=== PATIENT | male | born 1950 | race Caucasian/White ===

== ENCOUNTER → 2016-05-23 | Outpatient (CLI) | payer OTHER ==
[~2016-05-23] MED LIST: AMARYL2 MG PO; ASPIR 8181 M1 PO; BENICAR20 MG PO; CELEXA10 MG PO; FLOMAX0.4 MG PO; FOLTX TABLET1 EAC1 PO; IBUPROFEN 800800 MG PO; LIPITOR 20 MG T20 M1 PO; METFORMIN HCL500 MG PO; OMEGA-31000 M1 PO; OXYCODONE HCL 55 MG PO; PHENERGAN 25 MG25 M1 PO; SYNTHROID75 MCG PO; UNICOMPLEX M TA1 TA1 PO; VITAMIN D3400 UNIT PO
--- NOTE | ~2016-05-23 | 24HR ---
[place] [address] [address] [place] [address] 24 HR ELECTROCARDIOGRAM REPORT Name: BARTOLO NAVARRETE [facility]: [id number] Admission: 05/23/16 Attend Phys: Pipe Gómez Discharge: Date of : 50 Date of Service: 05/23/16 1441 Report #: [id number] THIS REPORT FOR: //name// [facility] Test Date: 2016-05-23 Test Time: 14:41:00 Pat Name: BARTOLO NAVARRETE Department: Room: Gender: Adobe Cq Developer: : 1950 Requested By: Pipe Gómez Order Number: [id number] Eduarda MD: Anthony Domínguez Interpretive Statements 1. This study duration was 24 hours and the technical quality was acceptable. 2. The predominant rhythm was sinus with an average heart rate of 113bpm, range 86-150. Longest RR interval 0.8sec 3. Occasional atrial premature complexes. One atrial triplet. No SVT. No atrial fibrillation or atrial flutter. No heart block. 4. Rare isolated PVC's. No ventricular tachycardia 5. No reported symptoms. Electronically Signed On 05-25-2016 17:39:38 [employer] by Anthony Domínguez [email or web address] <ELECTRONICALLY SIGNED> By: Anthony Domínguez MD, FACC 05/25/16 1739 1441 1441 Anthony Domínguez MD, FAC /EPI
== END ==
LOC: CV 06:55
DX: I42.9 Cardiomyopathy, unspecified (principal); R00.0 Tachycardia, unspecified

== ENCOUNTER → 2016-09-02 | Outpatient (CLI) | payer OTHER ==
[2016-09-02 08:30] LABS: URINE BILIRUBIN NEGATIVE (Negative); URINE BLOOD NEGATIVE (Negative); URINE COLOR YELLOW; URINE GLUCOSE-RANDOM* NEGATIVE (Negative); URINE KETONES NEGATIVE (Negative); URINE NITRITE NEGATIVE (Negative); URINE PROTEIN (DIPSTICK) NEGATIVE (Negative); URINE SPECIFIC GRAVITY 1.025 (1.003-1.035); URINE UROBILINOGEN 0.2 E.U./dl (0.2-1.0)
[2016-09-02 08:33] LABS: BASOPHILS 1.1 % (0.0-2.0); EOSINOPHILS 1.3 % (0.0-3.0); HEMATOCRIT 43.1 % (42.0-52.0); HEMOGLOBIN 14.6 gm/dL (14.0-18.0); LYMPHOCYTES 24.3 % (24.0-44.0); MCH 31.9 pg (26.0-34.0); MCHC 33.8 g/dL (28.0-37.0); MCV 94.5 fL (80.0-100.0); MONOCYTES 4.6 % (1.0-8.0); PLATELET COUNT 234 thou/uL (150-400); POLYS 68.7 % (36.0-66.0); RBC 4.56 mil/uL (4.50-6.00); RDW 13.7 % (10.5-14.5); WBC 10.2 thou/uL (4.0-11.0)
[2016-09-02 08:35] LABS: MANUAL DIFF NO
[2016-09-02 08:46] LABS: ANION GAP 8 mmol/L (7-16); BUN 23 mg/dL (7-18); CALCIUM 9.5 mg/dL (8.5-10.1); CHLORIDE 105 mmol/L (98-107); CO2 29 mmol/L (21-32); CREATININE 1.4 mg/dL (0.7-1.3); GLUCOSE 143 mg/dL (74-106); POTASSIUM 4.8 mmol/L (3.5-5.1); SODIUM 142 mmol/L (136-145)
[2016-09-02 08:50] LABS: ALKALINE PHOSPHATASE 58 U/L (46-116); CHOLESTEROL 136 mg/dL (<200); HDL CHOLESTEROL 44 mg/dL (>40); LDL CHOLESTEROL 63 mg/dL (<100); SGOT 40 U/L (15-37); SGPT 67 U/L (30-65); TC:HDL 3.1 Ratio (Not establshd); TOTAL BILIRUBIN 0.5 mg/dL (<0.1-1.0); TOTAL PROTEIN 7.9 g/dL (6.4-8.2); TRIGLYCERIDE 149 mg/dL (<150); VLDL 30 mg/dL (<40)
[2016-09-02 14:10] LABS: PSA 1.7 ng/mL (0.0-4.0)
[2016-09-03 04:11] LABS: GLYCOHEMOGLOBIN (HGB A1C) 6.4 % (4.8-5.6)
== END ==
LOC: LABMALL 07:33
PROVIDERS: Internal Medicine
DX: I42.9 Cardiomyopathy, unspecified (principal); E03.9 Hypothyroidism, unspecified; E11.9 Type 2 diabetes mellitus without complications; E78.4 Other hyperlipidemia

== ENCOUNTER → 2016-10-26 | Outpatient (CLI) | payer OTHER ==
--- NOTE | ~2016-10-26 | 2DMMODE ---
[facility] [place] [address] 2 D/M-MODE ECHOCARDIOGRAM Name: BARTOLO NAVARRETE Room #: REG [facility]#: [id number] Admission: 10/26/16 Attend Phys: Usman Pappas Discharge: Date of : 50 Date of Service: 10/26/16 1014 Report #: [id number] THIS REPORT FOR: //name// APPROVED REPORT Study performed: 10/26/2016 09:19:32 EXAM: Limited 2D, Doppler, and color-flow Echocardiogram Patient Location: Out-Patient Status: routine Other Information Study Quality: Adequate Indications Cardiomyopathy. 2D Dimensions LVEF(%): 28.67 (>50%) LVDd: 52.57 mm Ascending Ao: 38.96 (22-36mm) LVDs: 45.47 (25-40mm) Aortic Root: 39.84 mm Herron's LVEF: 28.67 % Aortic Valve AoV Peak David.: 1.04 m/s AO Peak Gr.: 4.35 mmHg Tricuspid Valve RAP Estimate: 5.00 mmHg Left Ventricle The left ventricle is normal size. Left ventricular systolic function is severely decreased. LVEF is 25%. Right Ventricle The right ventricle is normal size. Right ventricle is mildly hypokinetic. Atria Left atrium is at the upper limits of normal. Aortic Valve The aortic valve is normal in structure. No aortic regurgitation is [facility] [address] [place] [address] 2 D/M-MODE ECHOCARDIOGRAM Name: BARTOLO NAVARRETE Room #: REG [facility]#: [id number] Admission: 10/26/16 Attend Phys: Usman Pappas Discharge: Date of : 50 Date of Service: 10/26/16 1014 Report #: [id number] present. There is no aortic valvular stenosis. Mitral Valve Mitral valve leaflets are mildly calcified. Mild mitral annular calcification. Trace mitral regurgitation. Tricuspid Valve The tricuspid valve is normal in structure. There is no tricuspid valve regurgitation noted. Great Vessels Aortic root is mildly dilated at 4.0cm. The ascending aorta is mildly dilated at 3.9cm. IVC is normal in size and collapses >50% with inspiration. Pericardium There is no pericardial effusion. <Conclusion> The left ventricle is normal size. Left ventricular systolic function is severely decreased. LVEF is 25%. Left atrium is at the upper limits of normal. The aortic valve is normal in structure. Mitral valve leaflets are mildly calcified. Mild mitral annular calcification. Trace mitral regurgitation. The tricuspid valve is normal in structure. Aortic root is mildly dilated at 4.0cm. The ascending aorta is mildly dilated at 3.9cm. <ELECTRONICALLY SIGNED> By: Usman High MD 10/26/16 1014 1014 1014 Usman High MD /INF
== END ==
LOC: CV 09:12
DX: I42.9 Cardiomyopathy, unspecified (principal)

== ENCOUNTER 2017-01-17 15:41 | Emergency (ER) | payer OTHER ==
[~2017-01-17] VITALS: Ht 180.3 cm; Wt 106.1 kg
[~2017-01-17 15:41] MED LIST changes: -ALDACTONE25 MG PO; -BENICAR HCT 201 EACH PO; -NORCO 5-325 TA1 EACH PO; -OMEPRAZOLE40 MG PO; -SENNA-DOCUSATE1 EACH PO; -VICTOZA0.6 MG/0.1 SUBQ
[2017-01-17] MEDS ORDERED: ALDACTONE25 MG PO (15:57)
[2017-01-17] MEDS ORDERED: BENICAR HCT 201 EACH PO (15:58)
[2017-01-17] MEDS ORDERED: VICTOZA0.6 MG/0.1 SUBQ (15:59)
[2017-01-17] MEDS ORDERED: OMEPRAZOLE40 MG PO (15:59)
[2017-01-17] MEDS ORDERED: NORCO 5-325 TA1 EACH PO (17:34)
[2017-01-17] MEDS ORDERED: SENNA-DOCUSATE1 EACH PO (17:34)
== END 2017-01-17 18:02 | disposition home or self-care (01) ==
LOC: ER 15:41
DX: I74.2 Embolism and thrombosis of arteries of the upper extremities (principal); E11.9 Type 2 diabetes mellitus without complications; E89.0 Postprocedural hypothyroidism; I11.9 Hypertensive heart disease without heart failure; F10.99 Alcohol use, unspecified with unspecified alcohol-induced disorder; Z98.890 Other specified postprocedural states; Z95.5 Presence of coronary angioplasty implant and graft

== ENCOUNTER → 2017-01-17 | Outpatient (CLI) | payer OTHER ==
[~2017-01-17] VITALS: Ht 180.3 cm; Wt 106.1 kg
[~2017-01-17] MED LIST changes: +ALDACTONE25 MG PO; +BENICAR HCT 201 EACH PO; +NORCO 5-325 TA1 EACH PO; +OMEPRAZOLE40 MG PO; +SENNA-DOCUSATE1 EACH PO; +VICTOZA0.6 MG/0.1 SUBQ
--- NOTE | ~2017-01-17 | EKG ---
[address] [address] ELECTROCARDIOGRAM REPORT Name: BARTOLO NAVARRETE [id number] Admission: 01/17/17 Attend Phys: Gilmar Leblanc MD, FA Discharge: Date of : 50 Report #: [id number] THIS REPORT FOR: //name// [facility] Test Date: 2017-01-17 Test Time: 07:00:03 Pat Name: BARTOLO NAVARRETE Department: Room: Gender: Ticker Wirer: Derrick BERGERON : 1950 Requested By: Gilmar Leblanc Order Number: [id number] MD: Bunny Sotelo Measurements Intervals Jay Rate: 94 P: 17 CO: 175 QRS: -19 QRSD: 108 T: 58 QT: 353 QTc: 442 Interpretive Statements Sinus rhythm Incomplete left bundle branch block No previous ECG available for comparison Electronically Signed On 01-17-2017 8:13:21 CDT by Bunny Sotelo [email or web address] <ELECTRONICALLY SIGNED> By: Bunny Sotelo MD 01/17/1713 07 0700 Bunny Sotelo MD /JARED
--- NOTE | ~2017-01-17 | D ---
[facility] [place] [address] DISCHARGE SUMMARY Name: BARTOLO NAVARRETE Room #: REG Sergio Campos.#: [id number] Admission: 01/17/17 Attend Phys: Gilmar Leblanc MD, FA Discharge: Date of : 50 Report #: [id number] THIS REPORT FOR: //name// CC: Gilmar Gómez MD DATE OF SERVICE: 01/17/2017 DISCHARGE DIAGNOSES: 1. Coronary artery disease. 2. Dilated cardiomyopathy. 3. Hypertension. 4. Hyperlipidemia. 5. Diabetes melanoma. 6. Chronic kidney disease. CONSULTANTS: None. PROCEDURES: Left heart catheterization via the right radial artery. HISTORY OF PRESENT ILLNESS: The patient is a 66-year-old white male who was brought to the outpatient department to undergo a cardiac catheterization. 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 He has a long history of diabetes, hypertension, hyperlipidemia. I actually saw him in 2013 when he had a coronary calcium score of 351. Nuclear stress test at the time showed no ischemia, although ejection fraction was calculated at 33%. Subsequent echocardiogram showed an ejection fraction in the lower limits of normal and I recommended medical therapy. Screening at that time showed no carotid stenosis. Recently, he noticed he had a heart rate at rest of 100. He had an echocardiogram in October that showed an ejection fraction of 25%. Nuclear stress test showed no ischemia, but again ejection fraction of only 27% in August. In addition to Benicar, he was started on carvedilol and spironolactone. He was told he would need a defibrillator. I actually saw him in the office recently for second opinion. He denied any syncope or edema. He does note occasional sharp pain in his chest and does get short of breath with exertion. Because of his cardiomyopathy and multiple risk factors for coronary artery disease with chest pain I recommended cardiac catheterization. PAST MEDICAL HISTORY: Otherwise significant for thyroid surgery, umbilical hernia repair, hypertension, diabetes, hyperlipidemia, prostatism. MEDICATIONS: On admission consisted of aspirin, Lipitor, carvedilol, Amaryl, Synthroid, Victoza, Glucophage, Benicar/HCTZ, omeprazole, spironolactone. [address] [address] DISCHARGE SUMMARY Name: BARTOLO NAVARRETE Room #: REG [facility] Andres.#: [id number] Admission: 01/17/17 Attend Phys: Gilmar Leblanc MD, FA Discharge: Date of : 50 Report #: [id number] ALLERGIES: He had no known drug allergies. PHYSICAL EXAMINATION: VITAL SIGNS: Blood pressure 130/80, pulse 96. CHEST: Clear to auscultation. CARDIAC: Regular rate and rhythm. ABDOMEN: Soft. EXTREMITIES: No edema. SKIN: Warm and dry. LABORATORY DATA: Sodium 136, potassium 4.5. His BUN is 21, creatinine 1.4. Glucose is 195. His liver function studies were normal. Cholesterol 135, triglyceride 125, HDL 41, LDL 69. White blood cell count 8.0, hemoglobin 13.3. TSH in September was 0.855. Urinalysis in September negative for protein. HOSPITAL COURSE: The patient was brought to the outpatient department. I performed a left heart catheterization from the right radial artery. He tolerated this well. Left ventricular end diastolic pressure was 25. Ejection fraction was 30% with global hypokinesis. He had minimal coronary artery disease with only a 50% narrowing of the mid right coronary artery and 50% stenosis of the mid circumflex. The results were discussed with the patient and his . He is felt to have mild coronary artery disease and I suspect his chest pain is noncardiac. He was felt to have a nonischemic cardiomyopathy. At the time of discharge, there was no hematoma in his right wrist. He was discharged to continue his home medications that included aspirin 81 mg a day, carvedilol 25 mg twice a day, Amaryl 2 mg a day, Synthroid 175 mcg a day, Victoza 1 injection a day. He was not to resume metformin for 48 hours after the contrast study. He was to continue Benicar HCT 20/12.5 a day, omeprazole 40 mg a day and spironolactone 25 mg a day. He was discharged to return to care of Dr. Gómez for routine medical care including management of his diabetes. He is scheduled to see my nurse practitioner in 3 weeks. At that time, I would recommend switching him from Benicar to Entresto 24/26 twice a day and titrate as tolerated. I would then recommend limited echocardiograms every 2 months while titrating his Entresto. After he gets to a maximal dose I would recommend considering a defibrillator for this patient with a cardiomyopathy that now apparently has been present for 3 years. The patient is relatively asymptomatic, although he does note a resting tachycardia, does get short of breath if he overexerts himself. His prognosis is obviously guarded due to his cardiomyopathy and he will need followup electrolytes while on spironolactone. I did recommend he maintain a tight control of diabetes and start an exercise program. I plan on seeing him in the cardiology clinic in [address] [facility] [address] [place] [address] DISCHARGE SUMMARY Name: BARTOLO NAVARRETE Room #: REG TEAGAN Campos.#: [id number] Admission: 01/17/17 Attend Phys: Gilmar Leblanc MD, FA Discharge: Date of : 50 Report #: [id number] followup. He must notify my office if he had any bleeding from the right wrist or pain in the right hand. <ELECTRONICALLY SIGNED> By: Gilmar Leblanc MD, FACC 01/19/17 1630 1755 1819 Gilmar Leblanc MD, FACC /nt
--- NOTE | ~2017-01-17 | CATHLAB ---
[facility] [address] [place] [address] INVASIVE PROCEDURE REPORT Name: BARTOLO NAVARRETE [facility] [id number] Admission: 01/17/17 Attend Phys: Gilmar Leblanc MD Discharge: Date of : 50 Date of Service: 01/17/17 1523 Report #: [id number] THIS REPORT FOR: //name// APPROVED REPORT Patient Details Patient Status: Out-Patient Room #: The patient is a 66 year-old male Event Personnel Gilmar Leblanc Field Party Manager, Constance Torresub, Lamin Minor RN, Mary España Monitor, Donita Skinner CVT Scrub Procedures Performed Art Access - R radial artery Left Heart Cath w/or w/o Coronaries [id number] [facility] [address] Initial Mod Sed Same Phys/QHP Gr5y 902821 99861 Mod Sed Same Phys/QHP Ea 288728 Hemostasis with Hemoband Indication Heart failure Risk Factors Hypertension Procedure Narrative The patient was brought electively to the Cardiac Catheterization Laboratory and was prepped and draped in a sterile manner. The Right Wrist^ was infiltrated with 2% Lidocaine subcutaneous anesthesia. A TRANSRADIAL SLENDER 6F GLIDESHEATH KIT #[id number] sheath was inserted into the Right Radial Artery^. Coronary angiography was performed using coronary diagnostic catheters. The right coronary system was accessed and visualized with a JR 4 catheter. The left coronary system was accessed and visualized with a JL 4 catheter. The left ventricle was accessed and visualized with a Pigtail catheter. Left ventricular/Aortic Valve gradient assessed via catheter pullback. Left ventriculogram was performed in 30 degree projection. The patient tolerated the procedure well and there were no complications associated with the procedure. There was no hematoma. Intraoperative Conscious Sedation Sedation start time: 08:33 Case end Time: 09:13 Fentanyl 75.0 mcg Versed 5.0 [place] [address] INVASIVE PROCEDURE REPORT Name: BARTOLO NAVARRETE Room #: REG [facility]#: [id number] Admission: 01/17/17 Attend Phys: Gilmar Leblanc MD Discharge: Date of : 50 Date of Service: 01/17/17 1523 Report #: [id number] Fluoro Time: 7.51 minutes Dose: 1023 mGy Contrast Type and Amount: Visipaque 140 ml Coronary Angiography The patient's coronary anatomy is right dominant. Ewiiaapaayp Artery Percent Stenosis Left Main: 0 % Prox LAD: 0 % Mid/Distal LAD: 0 % Circumflex: 50 % RCA: 50 % Ramus: %50% stenosis noted of the second marginal branch of the circumflex. 50% stenosis noted of the mid rca. Left Ventriculography The left ventricle is mildly dilated in size with contractility. The left ventricular ejection fraction is estimated to be 30%. There is no mitral insufficiency. Global hypokinesis noted of the left ventricle Hemodynamics The aortic pressure is 136/90 mmHg with a mean of 9 mmHg. The left ventricular pressure is 133/14 mmHg with a mean of mmHg. The left ventricular end diastolic pressure is 22 mmHg. There was no gradient across the aortic valve upon pullback. Pullback from the left ventricle to the aorta revealed no gradient across the aortic valve. Conclusion 1. mild cad 2. nonischemic cardiomyopathy Recommendations Aggressive Medical Therapy <ELECTRONICALLY SIGNED> By: Gilmar Leblanc MD, FACC 01/17/17 1523 1523 1523 Gilmar Leblanc MD, FACC /INF
[2017-01-17 07:10] VITALS: BP 135/91
[2017-01-17 08:06] LABS: HEMATOCRIT 40.5 % (42.0-52.0); HEMOGLOBIN 13.3 gm/dL (14.0-18.0); MCH 31.1 pg (26.0-34.0); MCHC 32.9 g/dL (28.0-37.0); MCV 94.5 fL (80.0-100.0); RBC 4.28 mil/uL (4.50-6.00); RDW 13.6 % (10.5-14.5)
[2017-01-17 08:07] LABS: CALCIUM 9.4 mg/dL (8.5-10.1); CREATININE 1.4 mg/dL (0.7-1.3); POTASSIUM 4.5 mmol/L (3.5-5.1)
[2017-01-17 08:12] LABS: ALBUMIN 3.8 g/dL (3.4-5.0); TOTAL BILIRUBIN 0.5 mg/dL (<0.1-1.0); TOTAL PROTEIN 7.2 g/dL (6.4-8.2)
[2017-01-17 08:17] LABS: CHOLESTEROL 135 mg/dL (<200); HDL CHOLESTEROL 41 mg/dL (>40); LDL CHOLESTEROL 69 mg/dL (<100); TC:HDL 3.3 Ratio (Not establshd); TRIGLYCERIDE 125 mg/dL (<150); VLDL 25 mg/dL (<40)
== END | disposition home or self-care (01) ==
LOC: CATH 06:31
PROVIDERS: Internal Medicine Cardiovascular Disease
DX: I25.10 Atherosclerotic heart disease of native coronary artery without angina pectoris (principal); I11.0 Hypertensive heart disease with heart failure; I42.8 Other cardiomyopathies; E11.9 Type 2 diabetes mellitus without complications; E66.09 Other obesity due to excess calories; Z87.891 Personal history of nicotine dependence; Z82.49 Family history of ischemic heart disease and other diseases of the circulatory system; Z79.899 Other long term (current) drug therapy

== ENCOUNTER 2017-05-01 06:34 | Observation (INO) | payer OTHER ==
[~2017-05-01] VITALS: Ht 182.9 cm; Wt 115.9 kg
[2017-05-01] VITALS (8 sets, daily range): BP systolic 112–130; BP diastolic 70–87
--- NOTE | ~2017-05-01 | P ---
[facility] [place] [address] PROCEDURE REPORT Name: BARTOLO NAVARRETE Room #: 213-P [facility] M..#: [id number] Admission: 05/01/17 Attend Phys: Bunny Sotelo MD Discharge: 05/02/17 Date of : 50 Report #: [id number] THIS REPORT FOR: //name// CC: Gilmar Sotelo DATE OF SERVICE: 05/01/2017 DATE OF PROCEDURE: 05/01/2017. PREOPERATIVE DIAGNOSIS: Nonischemic cardiomyopathy. POSTOPERATIVE DIAGNOSIS: Nonischemic cardiomyopathy. HISTORY: The patient is a 66-year-old with a history of a nonischemic cardiomyopathy with class 2-3 heart failure symptoms here for ICD implantation for primary prevention of sudden cardiac . ANESTHESIA: The patient underwent MAC anesthesia with no anesthesia related complications. DESCRIPTION OF PROCEDURE: The patient underwent informed consent. We discussed the details of the procedure including the risks, which include but not limited to bleeding, infection, vascular damage, cardiac perforation and pneumothorax. He understood these risks and was willing to proceed. The patient was brought to the EP laboratory in a fasting and unsedated state and prepped and draped in sterile fashion and received IV Ancef for antibiotic prophylaxis. A venogram was performed showing patency of the left axillary vein. Next, I injected 20 mL of lidocaine below the level of the left clavicle. Incision was made and a pocket was created over the prepectoral fascia and access was obtained once in the left axillary vein using the extrathoracic approach with the sheath positioned using the modified Seldinger technique. Next, a lead was positioned in the right ventricular apex with adequate pacing and sensing thresholds. Of note, with threshold testing the patient would have some short runs of supraventricular tachycardia that would self-terminate. Next, the lead was sutured to the prepectoral fascia and then the device was connected to the lead. The device was tested and found to be functioning normally. The pocket was irrigated with vancomycin solution and then the pocket was closed in 3 layers using 2-0 for the deep layer, 3-0 for the mid layer, 4-0 for the subcuticular layer. Surgical glue was placed to the outer skin layer. The patient awoke neurologically and hemodynamically intact with no complications and no significant bleeding. The implanted defibrillator was a [employer] model # [id number], serial [address] [address] PROCEDURE REPORT Name: BARTOLO NAVARRETE [facility] [id number] Admission: 05/01/17 Attend Phys: Bunny Sotelo MD Discharge: 05/02/17 Date of : 50 Report #: [id number]. The RV lead was a [employer] model #7120Q, 65 cm, serial #[id number]. This was a dual coil ICD lead. The lead demonstrated an R-wave of 11.9 millivolts, pacing of 600 ohms and the pacing threshold 0.75 volts at 0.5 milliseconds. The device was programmed to the VVI 40 mode. The VT zone was set at 180-220 with 3 rounds of burst followed by 3 rounds of ramp followed by max output shocks. The VF zone was set at greater than 220 beats per minute with ATP while charging followed by max output shocks. CONCLUSIONS: 1. Successful ICD implantation. 2. Satisfactory right ventricular pacing and sensing thresholds. 3. Short runs of supraventricular tachycardia during ventricular pacing of unknown clinical significance. <ELECTRONICALLY SIGNED> By: Bunny Sotelo MD 05/02/17 1525 1006 1856 Bunny Sotelo MD /nt
--- NOTE | ~2017-05-01 | D ---
[facility] [place] [address] DISCHARGE SUMMARY Name: BARTOLO NAVARRETE Room #: 213-P [facility] M.R.#: [id number] Admission: 05/01/17 Attend Phys: Bunny Sotelo MD Discharge: 05/02/17 Date of : 50 Report #: [id number] THIS REPORT FOR: //name// CC: Gilmar Sotelo PREOPERATIVE DIAGNOSES: 1. Nonischemic cardiomyopathy. 2. [employer] functional class 2-3 heart failure symptoms. PROCEDURES PERFORMED: Single-chamber [employer] ICD implantation. HISTORY: The patient is a 66-year-old with a nonischemic cardiomyopathy with [employer] functional class 2-3 heart failure symptoms, who was here for ICD implantation for primary prevention of sudden cardiac . He underwent successful implantation of a [employer] single-chamber dual coil ICD. The procedure was without complications. HOSPITAL COURSE: The patient was monitored in the hospital overnight. On the day of discharge, the patient was doing well. He denied any chest pain or shortness of breath. PHYSICAL EXAMINATION: HEART: Regular rate and rhythm. LUNGS: Clear bilaterally. ABDOMEN: Soft, nontender. EXTREMITIES: No edema and his incision site was healing nicely with no hematoma or ecchymosis. A device interrogation showed normal device function. A chest x-ray showed stable lead position with no pneumothorax. On telemetry, he remained in sinus rhythm and had 2 short runs of nonsustained VT, lasting 3-5 beats. Otherwise, his vital signs were stable. As such, he was deemed stable for discharge home. Discharge instructions were reviewed. He will follow up in 7-10 days for a site check. His medications were unchanged from his outpatient medical regimen. <ELECTRONICALLY SIGNED> By: Bunny Sotelo MD 05/02/17 1525 0831 0841 Bunny Sotelo MD /nt
[~2017-05-01 06:34] MED LIST changes: +ALDACTONE25 MG PO; +BENICAR HCT 201 EACH PO; +NORCO 5-325 TA1 EACH PO; +OMEPRAZOLE40 MG PO; +SENNA-DOCUSATE1 EACH PO; +VICTOZA0.6 MG/0.1 SUBQ
[2017-05-01] MEDS ORDERED: COREG25 MG PO (07:15)
[2017-05-01] MEDS ORDERED: ENTRESTO 24 MG1 EACH PO (07:16)
[2017-05-01 07:34] LABS: ABSOLUTE NEUTROPHILS 5.6 thou/uL (1.4-8.2); BASOPHILS 0.7 % (0.0-2.0); EOSINOPHILS 1.7 % (0.0-3.0); HEMATOCRIT 40.8 % (42.0-52.0); HEMOGLOBIN 13.7 gm/dL (14.0-18.0); LYMPHOCYTES 26.5 % (24.0-44.0); MCH 31.6 pg (26.0-34.0); MCHC 33.6 g/dL (28.0-37.0); MCV 93.8 fL (80.0-100.0); MONOCYTES 6.5 % (1.0-8.0); PLATELET COUNT 233 thou/uL (150-400); POLYS 64.6 % (36.0-66.0); RBC 4.35 mil/uL (4.50-6.00); RDW 13.9 % (10.5-14.5); WBC 8.7 thou/uL (4.0-11.0)
[2017-05-01 07:41] LABS: CALCIUM 8.8 mg/dL (8.5-10.1); CREATININE 1.3 mg/dL (0.7-1.3); POTASSIUM 4.2 mmol/L (3.5-5.1)
[2017-05-01 07:47] LABS: ALBUMIN 3.7 g/dL (3.4-5.0); APTT 25.2 Seconds (24.5-32.8); INR 1.1; PROTIME 11.7 Seconds (9.3-11.4); TOTAL BILIRUBIN 0.5 mg/dL (<0.1-1.0); TOTAL PROTEIN 7.1 g/dL (6.4-8.2)
[2017-05-02 00:12] VITALS: BP 125/68
[2017-05-02 04:06] VITALS: BP 121/89
[2017-05-02 08:55] VITALS: BP 146/74
[2017-05-02 10:43] VITALS: BP 146/74
[2017-11-28] MEDS ORDERED: ZOFRAN ODT4 MG PO (09:35)
[2017-11-28] MEDS ORDERED: FLOMAX0.4 MG PO (09:35)
[2017-11-28] MEDS ORDERED: NORCO 5-325 TA1 EACH PO (09:35)
== END 2017-05-02 11:10 | disposition home or self-care (01) ==
LOC: CATH 06:34 → 2N 10:27 → CATH 10:49 → ENTRNSPT 05-02 10:59 → EDTRNSPTSTS 05-02 11:01 → 2N 05-02 11:10
PROVIDERS: Internal Medicine Cardiovascular Disease
DX: I42.8 Other cardiomyopathies (principal); I50.20 Unspecified systolic (congestive) heart failure; G47.30 Sleep apnea, unspecified; E11.9 Type 2 diabetes mellitus without complications; I10 Essential (primary) hypertension; E66.9 Obesity, unspecified; F34.1 Dysthymic disorder; E78.5 Hyperlipidemia, unspecified; E03.9 Hypothyroidism, unspecified; F41.9 Anxiety disorder, unspecified; F32.9 Major depressive disorder, single episode, unspecified; Z68.30 Body mass index [BMI] 30.0-30.9, adult; N40.0 Benign prostatic hyperplasia without lower urinary tract symptoms; Z79.4 Long term (current) use of insulin

== ENCOUNTER → 2018-05-17 | Outpatient (CLI) | payer OTHER ==
[~2018-05-17] MED LIST changes: +ATORVASTATIN CA40 MG PO; +COREG25 MG PO; +ENTRESTO 24 MG1 EACH PO; +SYNTHROID175 MCG PO; +TRULICITY1.5 MG/0.5 SUBQ; +ZOFRAN ODT4 MG PO
== END ==
LOC: ULTRA 07:21
DX: N28.1 Cyst of kidney, acquired (principal); K76.0 Fatty (change of) liver, not elsewhere classified

== ENCOUNTER → 2018-06-25 | Outpatient (CLI) | payer OTHER | LOC: RAD 08:39 | DX: R05 Cough (principal); Z95.810 Presence of automatic (implantable) cardiac defibrillator ==

== ENCOUNTER → 2018-08-29 | Outpatient (CLI) | payer OTHER | LOC: NUC 07:28 | DX: R10.11 Right upper quadrant pain (principal) ==

== ENCOUNTER → 2018-11-19 | Outpatient (CLI) | payer OTHER ==
--- NOTE | 2018-11-20 21:56 | SLE ---
[facility] [place] [address] POLYSOMNOGRAPHY STUDY Name: BARTOLO NAVARRETE Room #: REG [facility]#: [id number] Admission: 11/19/18 Attend Phys: Cesar Nguyễn MD Discharge: Date of : 50 Report #: [id number] THIS REPORT FOR: //name// CC: Toi Nguyễn MD DATE OF SERVICE: 11/19/2018 ATTENDING PHYSICIAN: Dr. Cesar Nguyễn. Patient is a 67-year-old who weighs 240 pounds with a BMI of 33.5. The patient's Marengo score was 6. The patient had a home sleep study and was found to have moderate CANDICE along with moderate nocturnal hypoxia. The patient was referred for in-lab CPAP titration study performed at [facility]. During the night study, the patient spent 495 minutes in bed and slept for 430 minutes with a sleep efficiency of 83%. Sleep latency was 36 minutes with a REM latency of 82.5 minutes. Overall, sleep architecture showed normal stage 1 sleep, increased stage 2 sleep, reduced slow wave sleep and normal REM sleep. EKG monitoring revealed an average heart rate of 85 beats per minute. Occasional PVCs observed. No sustained arrhythmias seen. PLMs were seen at an index of 2.9 per hour and 0.3 per hour caused EEG arousals. The patient was started on CPAP at a pressure of 5 cm water and titrated up to 12 cm water. At the final pressure, the patient slept for 183 minutes including 69 minutes of REM sleep. The patient had supine sleep as well. The patient's AHI was reduced to 5.2 per hour and oxygen saturation remained above 88%. IMPRESSION: 1. Sleep apnea diagnosed by home sleep study. 2. No clinically significant periodic limb movements. RECOMMENDATIONS: 1. CPAP at 12 cm water completely eliminated the patient's sleep apnea and should be used on a nightly basis. 2. Follow up in 4-6 weeks to assess compliance with CPAP and to document clinical improvement. 3. Weight loss is strongly advised. 4. Avoid HANDY MAN depressants. [facility] [address] [place] [address] POLYSOMNOGRAPHY STUDY Name: BARTOLO NAVARRETE Room #: REG [facility].#: [id number] Admission: 11/19/18 Attend Phys: Cesar Nguyễn MD Discharge: Date of : 50 Report #: [id number] 5. Cautioned regarding driving until symptoms of sleep apnea resolve with the use of CPAP. <ELECTRONICALLY SIGNED> By: Dennis Nice MD 11/20/18 2156 1711 3877 Dennis Nice MD /nt
== END ==
LOC: SLEEPLAB 19:32
DX: G47.33 Obstructive sleep apnea (adult) (pediatric) (principal); G47.19 Other hypersomnia; R53.83 Other fatigue; E66.09 Other obesity due to excess calories; Z68.34 Body mass index [BMI] 34.0-34.9, adult; Z71.3 Dietary counseling and surveillance

== ENCOUNTER → 2019-01-03 | Outpatient (CLI) | payer OTHER | LOC: MRI 07:58 → RAD 07:58 → MRI 12:31 | DX: I67.82 Cerebral ischemia (principal); R27.9 Unspecified lack of coordination; R25.1 Tremor, unspecified; Z95.810 Presence of automatic (implantable) cardiac defibrillator ==

== ENCOUNTER → 2019-05-14 | Outpatient (CLI) | payer OTHER | LOC: RAD 14:11 → LABMALL 14:11 | DX: I70.0 Atherosclerosis of aorta (principal); J98.01 Acute bronchospasm; M47.814 Spondylosis without myelopathy or radiculopathy, thoracic region; M46.04 Spinal enthesopathy, thoracic region; E66.09 Other obesity due to excess calories; Z68.34 Body mass index [BMI] 34.0-34.9, adult; Z99.89 Dependence on other enabling machines and devices ==